=== PATIENT | female | born 1990 | race Caucasian/White ===

== ENCOUNTER 2017-10-08 21:56 | Emergency (ER) | payer OTHER ==
[~2017-10-08] VITALS: Ht 162.6 cm; Wt 68.0 kg
[~2017-10-08 21:56] MED LIST: CIPRO500 MG PO; FLAGYL500 MG PO; HYDROCODONE-AP1 EAC6 PO; ONDANSETRON HCL4 M2 PO; ZOFRAN ODT4 MG PO
[2017-10-08] MEDS ORDERED: PRENATAL (22:17)
[2017-10-08 22:28] LABS: ABSOLUTE BASOPHILS 0.1 thou/uL (0.0-0.2); ABSOLUTE EOSINOPHILS 0.1 thou/uL (0.0-0.7); ABSOLUTE LYMPHOCYTES 2.5 thou/uL (0.8-5.3); ABSOLUTE MONOCYTES 0.7 thou/uL (0.0-1.2); ABSOLUTE NEUTROPHILS 7.4 thou/uL (1.6-8.1); BASOPHILS 0.9 %; EOSINOPHILS 1.1 %; HEMATOCRIT 39.5 % (37.0-47.0); HEMOGLOBIN 13.6 gm/dL (12.0-15.0); LYMPHOCYTES 23.1 %; MCH 30.7 pg (26.0-34.0); MCHC 34.5 g/dL (28.0-37.0); MCV 88.9 fL (80.0-100.0); MONOCYTES 6.1 %; MPV 7.4 fl. (7.2-11.1); NUCLEATED RBCS 0 /100WBC; PLATELET COUNT* 240 thou/uL (150-400); POLYS 68.8 %; RBC 4.44 mil/uL (4.20-5.00); RDW-CV 12.3 % (10.5-14.5); WBC 10.8 thou/uL (4.0-11.0)
[2017-10-08 22:35] LABS: CALCIUM 9.2 mg/dL (8.5-10.1); CREATININE 0.8 mg/dL (0.6-1.3); POTASSIUM 4.3 mmol/L (3.5-5.1)
[2017-10-08 22:40] LABS: ALBUMIN 3.8 g/dL (3.4-5.0); TOTAL BILIRUBIN 0.2 mg/dL (<0.1-1.0); TOTAL PROTEIN 7.4 g/dL (6.4-8.2)
[2017-10-08 22:43] LABS: URINE BILIRUBIN NEGATIVE (Negative); URINE BLOOD NEGATIVE (Negative); URINE CLARITY CLEAR; URINE COLOR YELLOW; URINE GLUCOSE-RANDOM NEGATIVE (Negative); URINE KETONES NEGATIVE (Negative); URINE LEUKOCYTES-REFLEX NEGATIVE (Negative); URINE NITRITE-REFLEX NEGATIVE (Negative); URINE PROTEIN NEGATIVE (Negative); URINE UROBILINOGEN 0.2 E.U./dl (0.2-1.0)
[2017-10-09] MEDS ORDERED: IBUPROFEN 800800 MG PO (00:01)
[2017-10-09] MEDS ORDERED: NORCO 5-325 TA1 EACH PO (00:01)
[2017-10-09 01:10] VITALS: BP 138/96
== END 2017-10-09 01:13 | disposition home or self-care (01) ==
LOC: M.ERS 21:56
PROVIDERS: Nurse Practitioner Family
DX: R10.2 Pelvic and perineal pain (principal); Z90.49 Acquired absence of other specified parts of digestive tract; Z88.4 Allergy status to anesthetic agent

== ENCOUNTER 2017-10-11 08:56 | Emergency (ER) | payer OTHER ==
[~2017-10-11] VITALS: Ht 167.6 cm; Wt 63.5 kg
[~2017-10-11 08:56] MED LIST changes: +IBUPROFEN 800800 MG PO; +NORCO 5-325 TA1 EACH PO; +PRENATAL
[2017-10-11 09:37] LABS: ABSOLUTE BASOPHILS 0.1 thou/uL (0.0-0.2); ABSOLUTE EOSINOPHILS 0.4 thou/uL (0.0-0.7); ABSOLUTE LYMPHOCYTES 2.3 thou/uL (0.8-5.3); ABSOLUTE MONOCYTES 0.5 thou/uL (0.0-1.2); ABSOLUTE NEUTROPHILS 3.1 thou/uL (1.6-8.1); BASOPHILS 1.4 %; EOSINOPHILS 5.9 %; HEMATOCRIT 38.3 % (37.0-47.0); HEMOGLOBIN 13.2 gm/dL (12.0-15.0); LYMPHOCYTES 36.4 %; MCH 30.7 pg (26.0-34.0); MCHC 34.4 g/dL (28.0-37.0); MCV 89.1 fL (80.0-100.0); MONOCYTES 8.1 %; MPV 7.6 fl. (7.2-11.1); NUCLEATED RBCS 0 /100WBC; PLATELET COUNT* 230 thou/uL (150-400); POLYS 48.2 %; RDW-CV 12.2 % (10.5-14.5); WBC 6.4 thou/uL (4.0-11.0)
[2017-10-11 09:45] LABS: CALCIUM 8.7 mg/dL (8.5-10.1); CREATININE 0.7 mg/dL (0.6-1.3); POTASSIUM 3.5 mmol/L (3.5-5.1)
[2017-10-11 09:50] LABS: ALBUMIN 3.7 g/dL (3.4-5.0); TOTAL BILIRUBIN 0.3 mg/dL (<0.1-1.0); TOTAL PROTEIN 7.3 g/dL (6.4-8.2)
[2017-10-11] MEDS ORDERED: HYDROCODON-ACE1 EAC7 PO (11:24)
[2017-10-11 11:55] VITALS: BP 133/82
== END 2017-10-11 11:55 | disposition home or self-care (01) ==
LOC: M.ERS 08:56
PROVIDERS: Emergency Medicine
DX: N83.292 Other ovarian cyst, left side (principal); Z88.8 Allergy status to other drugs, medicaments and biological substances; Z90.49 Acquired absence of other specified parts of digestive tract

== ENCOUNTER 2017-10-20 22:29 | Emergency (ER) | payer OTHER ==
[~2017-10-20] VITALS: Ht 167.6 cm; Wt 63.5 kg
[~2017-10-20 22:29] MED LIST changes: +HYDROCODON-ACE1 EAC7 PO
[2017-10-20] MEDS ORDERED: NEXPLANON68 MG IMPLANT (22:45)
[2017-10-20 23:05] LABS: ABSOLUTE BASOPHILS 0.1 thou/uL (0.0-0.2); ABSOLUTE EOSINOPHILS 0.4 thou/uL (0.0-0.7); ABSOLUTE LYMPHOCYTES 2.7 thou/uL (0.8-5.3); ABSOLUTE MONOCYTES 0.6 thou/uL (0.0-1.2); ABSOLUTE NEUTROPHILS 3.8 thou/uL (1.6-8.1); BASOPHILS 1.1 %; EOSINOPHILS 5.6 %; HEMATOCRIT 38.2 % (37.0-47.0); MCH 30.6 pg (26.0-34.0); MCHC 34.1 g/dL (28.0-37.0); MCV 89.7 fL (80.0-100.0); MONOCYTES 7.9 %; MPV 7.6 fl. (7.2-11.1); NUCLEATED RBCS 0 /100WBC; PLATELET COUNT* 257 thou/uL (150-400); POLYS 49.4 %; RBC 4.26 mil/uL (4.20-5.00); RDW-CV 12.5 % (10.5-14.5); WBC 7.6 thou/uL (4.0-11.0)
[2017-10-20 23:08] LABS: URINE BILIRUBIN NEGATIVE (Negative); URINE BLOOD 2+ (Negative); URINE CLARITY CLEAR; URINE COLOR YELLOW; URINE GLUCOSE-RANDOM NEGATIVE (Negative); URINE KETONES NEGATIVE (Negative); URINE LEUKOCYTES-REFLEX NEGATIVE (Negative); URINE NITRITE-REFLEX NEGATIVE (Negative); URINE PROTEIN NEGATIVE (Negative); URINE SPECIFIC GRAVITY 1.015 (1.005-1.030); URINE UROBILINOGEN 0.2 E.U./dl (0.2-1.0)
[2017-10-20 23:12] LABS: ANION GAP 7 mmol/L (7-16); BUN 18 mg/dL (7-18); CALCIUM 8.9 mg/dL (8.5-10.1); CHLORIDE 104 mmol/L (98-107); CO2 27 mmol/L (21-32); CREATININE 0.7 mg/dL (0.6-1.3); GLUCOSE 95 mg/dL (70-99); POTASSIUM 3.6 mmol/L (3.5-5.1); SODIUM 138 mmol/L (136-145)
[2017-10-20 23:17] LABS: SQUAMOUS 0-3 Few /LPF (0-3)
[2017-10-20 23:18] LABS: CASTS None Seen /LPF (None Seen); CRYSTALS None Seen /LPF (None Seen); MUCUS 0-3 Light strn/LPF (None Seen); TRANSITIONAL EPITHEL CELL 0-3 Few /LPF (None Seen); URINE RBC 3-10 Few /HPF (0-2); URINE WBC-REFLEX 0-5 Rare /HPF (0-5)
[2017-10-20 23:23] LABS: ALBUMIN 3.8 g/dL (3.4-5.0); ALKALINE PHOSPHATASE 53 U/L (46-116); LIPASE 214 U/L (73-393); SGOT 14 U/L (15-37); SGPT 21 U/L (30-65); TOTAL BILIRUBIN 0.3 mg/dL (<0.1-1.0); TOTAL PROTEIN 7.3 g/dL (6.4-8.2); TROPONIN-I LEVEL <0.06 ng/mL (<0.06)
[2017-10-21 03:19] VITALS: BP 112/62
--- NOTE | 2017-10-21 13:21 | EKG ---
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
== END 2017-10-21 03:20 | disposition home or self-care (01) ==
LOC: M.ERS 22:29
PROVIDERS: Physician Assistant
DX: R55 Syncope and collapse (principal); N76.0 Acute vaginitis; B96.89 Other specified bacterial agents as the cause of diseases classified elsewhere; N93.8 Other specified abnormal uterine and vaginal bleeding

== ENCOUNTER 2018-01-24 19:01 | Emergency (ER) | payer OTHER ==
[~2018-01-24] VITALS: Ht 167.6 cm; Wt 68.0 kg
[~2018-01-24 19:01] MED LIST changes: +NEXPLANON68 MG IMPLANT
[2018-01-24] MEDS ORDERED: TORADOL 10 MG T10 MG (19:25)
[2018-01-24 19:49] LABS: URINE BILIRUBIN NEGATIVE (Negative); URINE BLOOD NEGATIVE (Negative); URINE CLARITY CLEAR; URINE COLOR YELLOW; URINE GLUCOSE-RANDOM NEGATIVE (Negative); URINE KETONES NEGATIVE (Negative); URINE LEUKOCYTES NEGATIVE (Negative); URINE NITRITE NEGATIVE (Negative); URINE PROTEIN NEGATIVE (Negative); URINE SPECIFIC GRAVITY <= 1.005 (1.005-1.030); URINE UROBILINOGEN 0.2 E.U./dl (0.2-1.0)
[2018-01-24 19:51] LABS: ABSOLUTE BASOPHILS 0.1 thou/uL (0.0-0.2); ABSOLUTE EOSINOPHILS 0.5 thou/uL (0.0-0.7); ABSOLUTE MONOCYTES 0.5 thou/uL (0.0-1.2); ABSOLUTE NEUTROPHILS 4.6 thou/uL (1.6-8.1); BASOPHILS 1.2 %; EOSINOPHILS 6.2 %; HEMATOCRIT 39.8 % (37.0-47.0); HEMOGLOBIN 14.2 gm/dL (12.0-15.0); LYMPHOCYTES 33.9 %; MCH 31.3 pg (26.0-34.0); MCHC 35.7 g/dL (28.0-37.0); MCV 87.6 fL (80.0-100.0); MONOCYTES 5.6 %; MPV 7.9 fl. (7.2-11.1); NUCLEATED RBCS 0 /100WBC; PLATELET COUNT* 246 thou/uL (150-400); POLYS 53.1 %; RBC 4.54 mil/uL (4.20-5.00); RDW-CV 12.2 % (10.5-14.5); WBC 8.7 thou/uL (4.0-11.0)
[2018-01-24 19:55] LABS: CALCIUM 9.3 mg/dL (8.5-10.1); CREATININE 0.8 mg/dL (0.6-1.3)
[2018-01-24 20:00] LABS: ALBUMIN 3.8 g/dL (3.4-5.0); TOTAL BILIRUBIN 0.2 mg/dL (<0.1-1.0); TOTAL PROTEIN 7.7 g/dL (6.4-8.2)
[2018-01-24] MEDS ORDERED: ZOFRAN ODT4 MG PO (20:44)
[2018-01-24] MEDS ORDERED: ACETAMINOPHEN-1 EAC1 PO (20:44)
[2018-01-24 21:31] VITALS: BP 137/99
== END 2018-01-24 21:32 | disposition home or self-care (01) ==
LOC: M.ERS 19:01
PROVIDERS: Nurse Practitioner Family
DX: R10.30 Lower abdominal pain, unspecified (principal); Z88.8 Allergy status to other drugs, medicaments and biological substances; Z90.49 Acquired absence of other specified parts of digestive tract

== ENCOUNTER 2018-11-20 19:13 | Emergency (ER) | payer OTHER ==
[~2018-11-20] VITALS: Ht 167.6 cm; Wt 54.4 kg
[~2018-11-20 19:13] MED LIST changes: +ACETAMINOPHEN-1 EAC1 PO; +TORADOL 10 MG T10 MG
[2018-11-20 19:30] VITALS: BP 170/117
[2018-11-20] MEDS ORDERED: ADDERALL 10 MG10 MG PO (19:33)
[2018-11-20] MEDS ORDERED: PREPARATION H1 EAC5 RECTAL (19:54)
[2018-11-20] MEDS ORDERED: PROCTOCORT30 MG RECTAL (19:54)
== END 2018-11-20 20:03 | disposition home or self-care (01) ==
LOC: M.ERS 19:13
DX: K64.4 Residual hemorrhoidal skin tags (principal); F90.9 Attention-deficit hyperactivity disorder, unspecified type; Z88.4 Allergy status to anesthetic agent; Z90.49 Acquired absence of other specified parts of digestive tract

== ENCOUNTER 2019-01-21 17:49 | Emergency (ER) | payer OTHER ==
[~2019-01-21] VITALS: Ht 167.6 cm; Wt 56.7 kg
[~2019-01-21 17:49] MED LIST changes: +ADDERALL 10 MG10 MG PO; +PREPARATION H1 EAC5 RECTAL; +PROCTOCORT30 MG RECTAL
[2019-01-21] MEDS ORDERED: DASETTA1 EAC1 PO (17:58)
[2019-01-21 18:19] LABS: URINE BILIRUBIN NEGATIVE (Negative); URINE BLOOD NEGATIVE (Negative); URINE CLARITY CLEAR; URINE COLOR YELLOW; URINE GLUCOSE-RANDOM NEGATIVE (Negative); URINE KETONES NEGATIVE (Negative); URINE LEUKOCYTES-REFLEX NEGATIVE (Negative); URINE NITRITE-REFLEX NEGATIVE (Negative); URINE PROTEIN NEGATIVE (Negative); URINE UROBILINOGEN 0.2 E.U./dl (0.2-1.0)
[2019-01-21 18:19] LABS: ABSOLUTE BASOPHILS 0.1 thou/uL (0.0-0.2); ABSOLUTE EOSINOPHILS 0.3 thou/uL (0.0-0.7); ABSOLUTE LYMPHOCYTES 2.9 thou/uL (0.8-5.3); ABSOLUTE MONOCYTES 0.5 thou/uL (0.0-1.2); ABSOLUTE NEUTROPHILS 5.4 thou/uL (1.6-8.1); BASOPHILS 1.3 %; EOSINOPHILS 2.8 %; HEMATOCRIT 42.7 % (37.0-47.0); HEMOGLOBIN 14.8 gm/dL (12.0-15.0); LYMPHOCYTES 31.9 %; MCH 30.9 pg (26.0-34.0); MCHC 34.7 g/dL (28.0-37.0); MCV 89.1 fL (80.0-100.0); MONOCYTES 5.2 %; MPV 7.7 fl. (7.2-11.1); NUCLEATED RBCS 0 /100WBC; PLATELET COUNT* 234 thou/uL (150-400); POLYS 58.8 %; RBC 4.79 mil/uL (4.20-5.00); WBC 9.1 thou/uL (4.0-11.0)
[2019-01-21 18:25] LABS: CALCIUM 8.7 mg/dL (8.5-10.1); CREATININE 0.7 mg/dL (0.6-1.3); POTASSIUM 3.4 mmol/L (3.5-5.1)
[2019-01-21 18:29] LABS: ALBUMIN 3.7 g/dL (3.4-5.0); TOTAL BILIRUBIN 0.7 mg/dL (<0.1-1.0); TOTAL PROTEIN 7.6 g/dL (6.4-8.2)
[2019-01-21] MEDS ORDERED: ONDANSETRON HCL4 M2 PO (20:41)
[2019-01-21] MEDS ORDERED: NORCO 5-325 TA1 EAC1 PO (20:41)
[2019-01-21] MEDS ORDERED: NABUMETONE 750750 M1 PO (20:41)
[2019-01-21 21:09] VITALS: BP 141/87
== END 2019-01-21 21:09 | disposition home or self-care (01) ==
LOC: M.ERS 17:49
PROVIDERS: Nurse Practitioner Family
DX: N83.201 Unspecified ovarian cyst, right side (principal); F90.9 Attention-deficit hyperactivity disorder, unspecified type; Z88.8 Allergy status to other drugs, medicaments and biological substances; Z90.49 Acquired absence of other specified parts of digestive tract

== ENCOUNTER 2019-01-25 17:40 | Emergency (ER) | payer OTHER ==
[~2019-01-25] VITALS: Ht 167.6 cm; Wt 56.7 kg
[~2019-01-25 17:40] MED LIST changes: +DASETTA1 EAC1 PO; +NABUMETONE 750750 M1 PO; +NORCO 5-325 TA1 EAC1 PO
[2019-01-25 18:25] LABS: ABSOLUTE BASOPHILS 0.1 thou/uL (0.0-0.2); ABSOLUTE EOSINOPHILS 0.3 thou/uL (0.0-0.7); ABSOLUTE MONOCYTES 0.5 thou/uL (0.0-1.2); ABSOLUTE NEUTROPHILS 4.8 thou/uL (1.6-8.1); BASOPHILS 1.1 %; HEMATOCRIT 41.1 % (37.0-47.0); HEMOGLOBIN 14.4 gm/dL (12.0-15.0); LYMPHOCYTES 34.4 %; MCH 31.9 pg (26.0-34.0); MONOCYTES 5.4 %; MPV 7.8 fl. (7.2-11.1); NUCLEATED RBCS 0 /100WBC; PLATELET COUNT* 237 thou/uL (150-400); POLYS 56.1 %; RBC 4.52 mil/uL (4.20-5.00); WBC 8.6 thou/uL (4.0-11.0)
[2019-01-25 18:32] LABS: CALCIUM 8.6 mg/dL (8.5-10.1); CREATININE 0.8 mg/dL (0.6-1.3); POTASSIUM 3.4 mmol/L (3.5-5.1)
[2019-01-25 18:37] LABS: ALBUMIN 3.8 g/dL (3.4-5.0); TOTAL BILIRUBIN 0.2 mg/dL (<0.1-1.0); TOTAL PROTEIN 7.7 g/dL (6.4-8.2)
[2019-01-25] MEDS ORDERED: NORCO 5-325 TA1 EAC1 PO (20:04)
[2019-01-25 20:23] LABS: URINE BILIRUBIN NEGATIVE (Negative); URINE BLOOD TRACE (Negative); URINE CLARITY CLEAR; URINE COLOR YELLOW; URINE GLUCOSE-RANDOM NEGATIVE (Negative); URINE KETONES NEGATIVE (Negative); URINE NITRITE-REFLEX NEGATIVE (Negative); URINE PROTEIN NEGATIVE (Negative); URINE UROBILINOGEN 0.2 E.U./dl (0.2-1.0)
[2019-01-25 20:29] LABS: AMP/METHAMP Negative (Negative); BARBITURATES Negative (Negative); BENZODIAZEPINES Negative (Negative); COCAINE Negative (Negative); METHADONE Negative (Negative); OPIATES Negative (Negative); PCP Negative (Negative); THC Negative (Negative); URINE LEUKOCYTES-REFLEX 2+ (Negative)
[2019-01-25 20:35] LABS: CASTS None Seen /LPF (None Seen); CRYSTALS None Seen /LPF (None Seen); SQUAMOUS 0-3 Few /LPF (0-3); URINE RBC None Seen /HPF (0-2); URINE WBC-REFLEX 0-5 Rare /HPF (0-5)
[2019-01-25 20:37] VITALS: BP 139/97
--- NOTE | 2019-01-27 13:11 | EKG ---
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1990 Requested By: Vero Jean Order Number: [id number] MD: Alton Mock Measurements Intervals [place] Rate: 97 P: 81 AK: 199 QRS: 38 QRSD: 88 T: 53 QT: 362 QTc: 460 Interpretive Statements Sinus rhythm Atrial premature complex Borderline prolonged AK interval Right atrial enlargement Baseline wander in lead(s) V1,V6 Compared to ECG 10/20/2017 22:57:04 Atrial abnormality now present Ectopic atrial rhythm no longer present Electronically Signed On 01-27-2019 13:11:37 CDT by Alton Mock [email or web address] <ELECTRONICALLY SIGNED> By: Alton Mock MD, FAC 01/27/19 1311 181 1812 Alton Mock MD, [facility] /EPI
== END 2019-01-25 20:39 | disposition home or self-care (01) ==
LOC: M.ERS 17:40
PROVIDERS: Physician Assistant
DX: N83.201 Unspecified ovarian cyst, right side (principal); R11.2 Nausea with vomiting, unspecified; F90.9 Attention-deficit hyperactivity disorder, unspecified type; Z90.49 Acquired absence of other specified parts of digestive tract; Z88.6 Allergy status to analgesic agent

== ENCOUNTER 2019-05-10 02:32 | Emergency (ER) | payer OTHER ==
[~2019-05-10] VITALS: Ht 167.6 cm; Wt 57.6 kg
[2019-05-10] MEDS ORDERED: ZOFRAN ODT4 MG SUBLING (02:59)
[2019-05-10 03:05] LABS: ABSOLUTE EOSINOPHILS 0.1 thou/uL (0.0-0.7); ABSOLUTE MONOCYTES 0.5 thou/uL (0.0-1.2); ABSOLUTE NEUTROPHILS 4.5 thou/uL (1.6-8.1); BASOPHILS 0.6 %; EOSINOPHILS 2.1 %; HEMATOCRIT 39.3 % (37.0-47.0); HEMOGLOBIN 13.8 gm/dL (12.0-15.0); LYMPHOCYTES 16.3 %; MCH 31.9 pg (26.0-34.0); MONOCYTES 7.6 %; NUCLEATED RBCS 0 /100WBC; PLATELET COUNT* 208 thou/uL (150-400); POLYS 73.4 %; RBC 4.32 mil/uL (4.20-5.00); RDW-CV 12.1 % (10.5-14.5); WBC 6.1 thou/uL (4.0-11.0)
[2019-05-10 03:10] LABS: CALCIUM 7.6 mg/dL (8.5-10.1); CREATININE 0.7 mg/dL (0.6-1.3); POTASSIUM 3.2 mmol/L (3.5-5.1)
[2019-05-10 03:14] LABS: ALBUMIN 3.4 g/dL (3.4-5.0); TOTAL BILIRUBIN 0.5 mg/dL (<0.1-1.0); TOTAL PROTEIN 7.2 g/dL (6.4-8.2)
[2019-05-10 05:25] VITALS: BP 129/70
== END 2019-05-10 05:29 | disposition home or self-care (01) ==
LOC: M.ERS 02:32
PROVIDERS: Family Medicine
DX: R11.2 Nausea with vomiting, unspecified (principal); R19.7 Diarrhea, unspecified; R51 Headache; R53.1 Weakness; R10.9 Unspecified abdominal pain; R63.0 Anorexia

== ENCOUNTER 2019-08-30 08:36 | Emergency (ER) | payer OTHER ==
[~2019-08-30] VITALS: Ht 167.6 cm; Wt 56.7 kg
[~2019-08-30 08:36] MED LIST changes: +ZOFRAN ODT4 MG SUBLING
[2019-08-30] MEDS ORDERED: LEVAQUIN 500 M500 M3 PO (08:52)
[2019-08-30 09:19] LABS: ABSOLUTE BASOPHILS 0.1 thou/uL (0.0-0.2); ABSOLUTE EOSINOPHILS 0.1 thou/uL (0.0-0.7); ABSOLUTE LYMPHOCYTES 3.4 thou/uL (0.8-5.3); ABSOLUTE MONOCYTES 0.4 thou/uL (0.0-1.2); ABSOLUTE NEUTROPHILS 3.7 thou/uL (1.6-8.1); BASOPHILS 0.7 %; HEMATOCRIT 44.1 % (37.0-47.0); HEMOGLOBIN 15.9 gm/dL (12.0-15.0); LYMPHOCYTES 44.5 %; MCH 31.9 pg (26.0-34.0); MCHC 36.1 g/dL (28.0-37.0); MCV 88.3 fL (80.0-100.0); MONOCYTES 5.3 %; MPV 7.3 fl. (7.2-11.1); NUCLEATED RBCS 0 /100WBC; PLATELET COUNT* 297 thou/uL (150-400); POLYS 48.5 %; RBC 4.99 mil/uL (4.20-5.00); WBC 7.6 thou/uL (4.0-11.0)
[2019-08-30 09:30] LABS: CALCIUM 9.3 mg/dL (8.5-10.1); CREATININE 0.9 mg/dL (0.6-1.3)
[2019-08-30 09:31] LABS: POTASSIUM 2.9 mmol/L (3.5-5.1)
[2019-08-30 09:32] LABS: INFLUENZA A ANTIGEN Negative (Negative); INFLUENZA B ANTIGEN Negative (Negative)
[2019-08-30 09:42] LABS: ALBUMIN 4.2 g/dL (3.4-5.0); MAGNESIUM 1.7 mg/dL (1.8-2.4); TOTAL BILIRUBIN 1.1 mg/dL (<0.1-1.0); TOTAL PROTEIN 8.3 g/dL (6.4-8.2)
[2019-08-30 12:38] VITALS: BP 134/93
--- NOTE | 2019-08-31 11:20 | EKG ---
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1990 Requested By: Juan A Shetty Order Number: [id number] MD: Ace Anna Measurements Intervals [place] Rate: 101 P: 85 AR: 150 QRS: 39 QRSD: 90 T: 34 QT: 357 QTc: 463 Interpretive Statements Sinus tachycardia with irregular rate Borderline repolarization abnormality Baseline wander in lead(s) I,II,aVR Compared to ECG 01/25/2019 18:12:37 Sinus rhythm no longer present Atrial premature complex(es) no longer present Atrial abnormality no longer present Electronically Signed On 08-31-2019 11:18:47 CDT by Ace Anna [email or web address] <ELECTRONICALLY SIGNED> By: Julia Anna MD, [facility] 08/31/19 1118 9 09 Julia Anna MD, [facility] /EPI
[2019-08-31] MEDS ORDERED: HYDROXYZINE HCL25 M2 PO (19:03)
--- NOTE | 2019-09-01 10:07 | EKG ---
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
== END 2019-08-30 12:43 | disposition home or self-care (01) ==
LOC: M.ERS 08:36
PROVIDERS: Emergency Medicine Emergency Medical Services
DX: J06.9 Acute upper respiratory infection, unspecified (principal); F41.9 Anxiety disorder, unspecified; F90.9 Attention-deficit hyperactivity disorder, unspecified type; Z90.49 Acquired absence of other specified parts of digestive tract; Z88.4 Allergy status to anesthetic agent

== ENCOUNTER 2019-08-30 21:42 | Observation (INO) | payer OTHER ==
[~2019-08-30] VITALS: Ht 165.1 cm; Wt 58.5 kg
[~2019-08-30 21:42] MED LIST changes: +LEVAQUIN 500 M500 M3 PO
[2019-08-30 21:44] VITALS: BP 157/122
[2019-08-30 22:14] LABS: ABSOLUTE BASOPHILS 0.1 thou/uL (0.0-0.2); ABSOLUTE EOSINOPHILS 0.2 thou/uL (0.0-0.7); ABSOLUTE LYMPHOCYTES 3.4 thou/uL (0.8-5.3); ABSOLUTE MONOCYTES 0.6 thou/uL (0.0-1.2); ABSOLUTE NEUTROPHILS 4.7 thou/uL (1.6-8.1); BASOPHILS 0.8 %; HEMATOCRIT 43.2 % (37.0-47.0); HEMOGLOBIN 15.1 gm/dL (12.0-15.0); MCH 31.4 pg (26.0-34.0); MCHC 34.9 g/dL (28.0-37.0); MCV 89.8 fL (80.0-100.0); MONOCYTES 6.8 %; MPV 7.5 fl. (7.2-11.1); NUCLEATED RBCS 0 /100WBC; PLATELET COUNT* 270 thou/uL (150-400); POLYS 52.4 %; RBC 4.81 mil/uL (4.20-5.00); RDW-CV 12.3 % (10.5-14.5)
[2019-08-30 22:24] LABS: CALCIUM 8.6 mg/dL (8.5-10.1); CREATININE 0.9 mg/dL (0.6-1.3)
[2019-08-30 22:28] LABS: ALBUMIN 3.7 g/dL (3.4-5.0); TOTAL BILIRUBIN 0.5 mg/dL (<0.1-1.0); TOTAL PROTEIN 7.6 g/dL (6.4-8.2)
[2019-08-30 22:48] LABS: AMP/METHAMP Negative (Negative); BARBITURATES Negative (Negative); BENZODIAZEPINES Negative (Negative); COCAINE Negative (Negative); METHADONE Negative (Negative); OPIATES POSITIVE (Negative); PCP Negative (Negative); THC Negative (Negative)
[2019-08-30 23:08] LABS: BE 0 mmol/L (-2 to +3); PCO2 33.7 mmHg (35.0-45.0); pH 7.455 (7.340-7.450)
[2019-08-30 23:11] LABS: PO2 > 488.8 mmHg (75.0-100.0)
[2019-08-31] VITALS (9 sets, daily range): BP systolic 133–147; BP diastolic 87–107
[2019-08-31 00:46] LABS: URINE BILIRUBIN NEGATIVE (Negative); URINE BLOOD NEGATIVE (Negative); URINE CLARITY CLEAR; URINE COLOR STRAW; URINE GLUCOSE-RANDOM NEGATIVE (Negative); URINE KETONES NEGATIVE (Negative); URINE LEUKOCYTES NEGATIVE (Negative); URINE NITRITE NEGATIVE (Negative); URINE PROTEIN NEGATIVE (Negative); URINE UROBILINOGEN 0.2 E.U./dl (0.2-1.0)
--- NOTE | 2019-08-31 06:13 | NUR ---
PATIENT ARRIVED ON FLOOR FROM ER AT ABOUT 0340. PATIENT ADMISSION HISTORY AND ASSESSMENT WAS COMPLETED CHARTED. MCCLAIN WAS PLACED IN ER AND REMAINS TO DEPENDENT DRAIN. IV REMAINS SALINE LOCKED. WILL CONTINUE TO MONITOR.
[2019-08-31 11:05] LABS: CALCIUM 8.5 mg/dL (8.5-10.1); CREATININE 0.8 mg/dL (0.6-1.3); MAGNESIUM 1.9 mg/dL (1.8-2.4); POTASSIUM 3.5 mmol/L (3.5-5.1)
--- NOTE | 2019-08-31 17:01 | NUR ---
ASSUSMED CARE OF PT APPROX 0730. REASSESSMENT COMPLETED CHARTED. MEDICATIONS GIVEN CHARTED. PTS MCCLAIN D/BART THIS AM. PT UP TO BEDSIDE CAMODE WITH MAX ASSIST. PT STATES SHE CANNOT STAND ON HER OWN. PTS MUSCLES IN LEGS CAN BE SEEN FLEXING AND PT THEN DOES NOT USE LEG MUSCLES AND NEEDS COMPLETE STAFF ASSISTANCE. PT WAS HEARD CRYING FROM HER ROOM AT THE NURSES STATION. PT WAS UNCONSOLABLE, PT STATED SHE WAS UPSET BECAUSE SHE CAN NOT WALK. STAFF TRIED TO USE CALMING TECHNIQUES, WITH OUT ANY PT IMPROBEMENT. THE PHYSICAN WAS NOTIFIED AND ORDERS WHERE PLACED BY THE PHYSICAN. PT SHOWED SOME IMPROVEMENT AFTER ANXIETY MEDICATION WAS GIVEN. PT STATES THEY ARE STILL SAD BECAUSE THEY MISS THEIR FAMILY. SAFTEY PRECAUTIONS UTILIZED. HOURLY ROUNDING. TELE MONITORING.
--- NOTE | 2019-08-31 18:15 | NUR ---
PT REPORTS LEGS FULLY FUNCTIONING, SHE HAS AMBULATED IN THE HALLWAY WITH STAFF. SHE STATES SHE WANTS TO GO HOME. PHYSICAN NOTIFIED.
[2019-08-31] MEDS ORDERED: HYDROXYZINE HCL25 M2 PO (19:03)
--- NOTE | 2019-08-31 20:55 | NUR ---
UPON DISCHARGING PATIENT AT APPROX 1940, PATIENT TEARFUL, AND STATING SHE CANNOT BREATHE. SHE WAS HYPERVENTILATING. BROWN PAPER BAG PROVIDED FOR PT TO BREATHE INTO. VITAL SIGNS TAKEN AND DOCUMENTED. PHYSICIAN NOTIFIED. ORDERED TO ADMINISTER HYDROXYZINE AND PROVIDE THERAPEUTIC COMMUNICATION. AT THIS TIME, PATIENT IS CALM, VITAL SIGNS WNL. PATIENT WANTING TO BE DISCHARGED. DISCHARGE INSTRUCTIONS PROVIDED. IV LINES REMOVED. PATIENT WAITING FOR TO COME GET HER.
== END 2019-08-31 21:30 | disposition home or self-care (01) ==
LOC: M.ERS 21:42 → M.TBA-ER 08-31 02:56 → M.2W 08-31 02:56 → M.ERS 08-31 03:34 → M.2W 08-31 04:00
PROVIDERS: Emergency Medicine; Internal Medicine; ADMIT Internal Medicine
DX: T36.8X5A Adverse effect of other systemic antibiotics, initial encounter (principal); R53.1 Weakness; R41.82 Altered mental status, unspecified; F43.10 Post-traumatic stress disorder, unspecified; K21.9 Gastro-esophageal reflux disease without esophagitis; I10 Essential (primary) hypertension; F90.9 Attention-deficit hyperactivity disorder, unspecified type; Z90.49 Acquired absence of other specified parts of digestive tract; Z98.890 Other specified postprocedural states; I47.1 Supraventricular tachycardia; G92 Toxic encephalopathy; F11.10 Opioid abuse, uncomplicated; J40 Bronchitis, not specified as acute or chronic; Y92.89 Other specified places as the place of occurrence of the external cause